=== PATIENT | female | born 1960 | race African-American/Black ===

== ENCOUNTER 2018-11-22 19:21 | Inpatient (IN) | payer OTHER ==
[~2018-11-22] VITALS: Ht 167.6 cm; Wt 78.5 kg
--- NOTE | ~2018-11-22 | HC ---
[facility] [place] [address] CONSULTATION Name: ESHA MARTINS Room #: 424-P ADM IN M.R.#: [id number] Admission: 11/22/18 Attend Phys: Tomas Noland MD Discharge: Date of : 62 Report #: [id number] THIS REPORT FOR: //name// CC: [facility]NA physician/PCP Tomas Noland DATE OF SERVICE: 11/23/2018 REASON FOR CONSULTATION: The patient is a 57-year-old female who has been admitted to [facility] because of right foot pain. HISTORY OF PRESENT ILLNESS: This is a 57-year-old female who was brought to the ED yesterday because of severe right foot pain. The pain started approximately 24 hours earlier. The pain was severe enough where she says she was unable to do almost anything at the time, but scream. Pain has somewhat resolved today after pain medication. She was at getting lab work done when she first started to notice those symptoms on , but gradually got worse and then into the night. PAST MEDICAL HISTORY: Significant for hypertension, CHF, chronic renal failure, osteoarthritis. She had a mitral valve, colon preparation in the past, history of DVTs, GERD and thyroid problems, she had a thyroidectomy; and asthma. The patient has no history of trauma to this foot or previous trauma to this foot. No fever or chills. ALLERGIES: LATEX, OBREDON, CODEINE, AND MORPHINE. MEDICATIONS: Listed in the chart. PAST SURGICAL HISTORY: Include laparoscopic appendectomy, laparoscopic cholecystectomy, resection of colon, , thyroidectomy, colonoscopy. SOCIAL HISTORY: No history of alcohol, tobacco or drug use. REVIEW OF SYSTEMS: Noncontributory. PHYSICAL EXAMINATION: GENERAL: Well-developed, well-nourished female, in no acute distress. EXTREMITIES: Upper extremity has been worked up by the ER physician and the hospitalist. Lower extremity shows she has palpable pulses, dorsalis pedis and posterior tibial of the right foot. She has some slight edema dorsal aspect of the foot mid foot area; it is very painful to palpation of the area. DIAGNOSTIC DATA: X-rays unremarkable and CT is unremarkable for pain in this [facility] [address] [place] [address] CONSULTATION Name: ESHA MARTINS Room #: [facility] ADM IN M.R.#: [id number] Admission: 11/22/18 Attend Phys: Tomas Noland MD Discharge: Date of : 62 Report #: [id number]. ASSESSMENT: Most likely gout or rheumatological problem. PLAN: To give her a steroid injection today and send her home with Percocet and make her comfortable in a boot. Follow up with me in 1 week. Thank you for the consult. By: [id number] Wojciech Bush, OFELIA /nt
[~2018-11-22 19:21] MED LIST: NAPROSYN500 MG PO; NORFLEX100 MG PO
[2018-11-22 19:30] VITALS: BP 159/94
[2018-11-22 20:50] LABS: ABSOLUTE NEUTROPHILS 6.9 thou/uL (1.4-8.2); BASOPHILS 0.8 % (0.0-2.0); EOSINOPHILS 1.1 % (0.0-3.0); HEMOGLOBIN 8.9 gm/dL (12.0-15.0); LYMPHOCYTES 15.9 % (24.0-44.0); MCH 26.3 pg (26.0-34.0); MCV 79.6 fL (80.0-100.0); MONOCYTES 8.2 % (1.0-8.0); PLATELET COUNT 319 thou/uL (150-400); RBC 3.39 mil/uL (4.20-5.00); RDW 17.8 % (10.5-14.5); WBC 9.3 thou/uL (4.0-11.0)
[2018-11-22 21:05] LABS: POTASSIUM 3.6 mmol/L (3.5-5.1)
[2018-11-22 21:08] LABS: URIC ACID* 8.6 mg/dL (2.6-7.2)
[2018-11-22] MEDS ORDERED: LIPITOR 20 MG T20 M1 PO (22:49)
[2018-11-22] MEDS ORDERED: SYNTHROID200 MCG PO (22:49)
[2018-11-22] MEDS ORDERED: HYDRALAZINE 2525 MG PO (22:50)
[2018-11-22] MEDS ORDERED: COREG25 MG PO (22:50)
[2018-11-22] MEDS ORDERED: LASIX 40 MG TAB40 M2 PO (22:51)
[2018-11-22] MEDS ORDERED: POTASSIUM20 PO (22:51)
[2018-11-22 23:49] VITALS: BP 156/96
[2018-11-22 23:55] VITALS: BP 157/97
[2018-11-23 00:10] VITALS: BP 158/106
[2018-11-23] MEDS ORDERED: ZYRTEC 10 MG TA10 MG PO (01:17)
[2018-11-23] MEDS ORDERED: VITAMIN D50000 UNIT PO (01:18)
[2018-11-23] MEDS ORDERED: UNICOMPLEX M TA1 TA1 PO (01:19)
[2018-11-23] MEDS ORDERED: ISOSORBIDE MONO20 MG PO (01:22)
[2018-11-23] MEDS ORDERED: PROTONIX40 M1 PO (01:47)
[2018-11-23 04:00] VITALS: BP 157/107
--- NOTE | 2018-11-23 06:16 | NUR ---
PT ARRIVED TO UNIT APPROX 0015 IN STABLE CONDITION, TRANSFERRED SELF BY SCOOTING FROM CART ONTO BED. ADMISSION, ASSESSMENT, AND MED REC COMPLETED, CONSENTS SIGNED. PT C/O PAIN IN RIGHT FOOT, TENDER TO TOUCH; SLIGHTLY RED ON TOP OF FOOT, BUT NOT WARM OR SWOLLEN. HISTORY OF CHF AND STAGE 3 CKD. RECENTLY AT , HAD EGD AND COLONOSCOPY, LARGE POLYP REMOVED FROM COLON. DENIED NAUSEA OR SOB. GAVE NORCO ONCE OVERNIGHT. BP ELEVATED, BUT PT REPORTED MISSING HER EVENING/HS DOSES OF MEDS, GAVE AM HYDRALAZINE. NO OTHER CONCERNS, WILL CONTINUE TO MONITOR.
[2018-11-23 07:40] VITALS: BP 150/102
[2018-11-23 08:00] VITALS: BP 113/74
--- NOTE | 2018-11-23 08:23 | NUR ---
ASSUMED CARE OF PT AT 0700. ASSESSMENT COMPLETED. A&O,X4. C/O RIGHT FOOT PAIN, NO PAIN MEDS REQUESTED AT THIS TIME. PT IS ABLE TO MOVE FOOT SLOWLY AND DOES NOT BEAR WEIGHT ON IT. NO REDNESS OR SWELLING NOTED. SKIN INTACT, WARM AND DRY BILATERALLY. ROOM AIR, CLEAR LUNG SOUNDS. HIGH BP NOTED, AM BP MEDS GIVEN ORDERED. PLAN FOR CT TODAY. WILL CONTINUE TO MONITOR.
--- NOTE | 2018-11-23 09:26 | NUR ---
PT LEFT IN STABLE CONDITION VIA WHEELCHAIR FOR CT AT 09 AND RETURNED AT 925. NO CHANGE IN STATUS NOTED. WILL CONTINUE TO MONITOR.
--- NOTE | 2018-11-23 16:39 | NUR ---
DR. BOOTH AT BEDSIDE. NEW ORDERS FOR RIGHT FOOT INJECTION, SEE EMAR. PHYSICIAN ADMINISTERED AT BEDSIDE. PT TOLERATED PROCEDURE WELL.
[2018-11-23 17:09] VITALS: BP 157/105
--- NOTE | 2018-11-23 18:45 | NUR ---
NEW DISCHARGE ORDERS. PT PAIN WELL CONTROLLED. SCRIPT FOR PAIN MED AND CARENOTES GIVEN. DISCHARGE INFORMATION DISCUSSED WITH PT, STATES NO QUESTIONS OR CONCERNS. IV REMOVED, COBAND IN PLACE. PT DRESSED IN CLOTHES FROM HOME AND GATHERED BELONGINGS - INCLUDING PURSE WITH PATIENT. PT LEFT VIA WHEELCHAIR IN STABLE CONDITION AT 18:44. PT TUG HAND TO TAKE PT HOME.
== END 2018-11-23 18:50 | disposition home or self-care (01) | DRG 554 ==
LOC: ER 19:21 → EROBS 23:17 → 4E 11-23 01:04
PROVIDERS: Nurse Practitioner Family; ADMIT Internal Medicine
DX: M10.071 Idiopathic gout, right ankle and foot (principal); I13.0 Hypertensive heart and chronic kidney disease with heart failure and stage 1 through stage 4 chronic kidney disease, or unspecified chronic kidney disease; I50.22 Chronic systolic (congestive) heart failure; M19.90 Unspecified osteoarthritis, unspecified site; N18.3 Chronic kidney disease, stage 3 (moderate); D50.9 Iron deficiency anemia, unspecified; K21.9 Gastro-esophageal reflux disease without esophagitis; E89.0 Postprocedural hypothyroidism; J45.909 Unspecified asthma, uncomplicated; Z86.718 Personal history of other venous thrombosis and embolism; Z98.891 History of uterine scar from previous surgery; Z90.49 Acquired absence of other specified parts of digestive tract; Z79.899 Other long term (current) drug therapy; Z88.5 Allergy status to narcotic agent; Z88.8 Allergy status to other drugs, medicaments and biological substances; Z91.040 Latex allergy status; Z83.3 Family history of diabetes mellitus; Z82.3 Family history of stroke